=== PATIENT | female | born 1940 | race Caucasian/White ===

== ENCOUNTER → 2017-12-10 12:59 | Outpatient (CLI) | payer MEDICARE, OTHER, SELFPAY ==
[2017-12-10 14:00] LABS: Add Manual Diff / Slide Review NO; Basophils Percent Auto 0.9 % (0-2); Eosinophils Percent Auto 7.3 % (2-4); Hematocrit 41.1 % (36-46); Hemoglobin 13.8 g/dL (12.0-16.0); Lymphocytes Percent Auto 18.8 % (25-40); Mean Corpuscular HGB Conc 33.6 % (30-36); Mean Corpuscular Hemoglobin 29.9 PG (26-34); Monocytes Percent Auto 9.7 % (3-14); Neutrophils Absolute Auto 4200 /uL (3000-5900); Neutrophils Percent Auto 63.3 % (50-75); Platelet Count 195 X10^3/uL (150-400); Red Blood Cell Count 4.61 X10^6/uL (4.0-5.2); Red Cell Distribution Width 12.8 % (11.6-14.8); White Blood Cell Count 6.7 X10^3/uL (4.5-11.0)
[2017-12-10 14:11] LABS: Alanine Aminotransferase 35 IU/L (9-52); Albumin 4.6 g/dL (3.5-5.0); Albumin Globulin Ratio 1.5 (1.0-2.8); Alkaline Phosphatase 72 U/L (38-126); Aspartate Aminotransferase 35 IU/L (14-36); Bilirubin Total 0.6 mg/dL (0.2-1.3); Estimated Glomerular Filt Rate 43.3 mL/min (>60); Globulin 3.1 g/dL (1.7-4.1); Glucose 95 mg/dL (80-110); HEMOLYSIS 17 (0-50); Sodium 136 mmol/L (137-145); Total Protein 7.7 g/dL (6.3-8.2)
== END ==
PROVIDERS: Family Provider Internal Medicine; PCP Internal Medicine; Visit Provider Nurse Practitioner Gerontology
DX: C50.911 Malignant neoplasm of unspecified site of right female breast (principal)
CPT/HCPCS: 36415; 80053; 85025

== ENCOUNTER → 2018-06-11 09:41 | Outpatient (CLI) | payer MEDICARE, OTHER, SELFPAY ==
[2017-12-15 11:56] VITALS: TEMP 36.6
[2018-06-11 10:03] LABS: Add Manual Diff / Slide Review NO; Basophils Percent Auto 0.8 % (0-2); Eosinophils Percent Auto 6.6 % (2-4); Hematocrit 40.3 % (36-46); Hemoglobin 13.7 g/dL (12.0-16.0); Lymphocytes Percent Auto 20.8 % (25-40); Mean Corpuscular Hemoglobin 30.1 PG (26-34); Mean Corpuscular Volume 88.6 fL (80-100); Neutrophils Absolute Auto 3500 /uL (3000-5900); Neutrophils Percent Auto 61.8 % (50-75); Platelet Count 190 X10^3/uL (150-400); Red Blood Cell Count 4.55 X10^6/uL (4.0-5.2); Red Cell Distribution Width 12.6 % (11.6-14.8); White Blood Cell Count 5.7 X10^3/uL (4.5-11.0)
[2018-06-11 10:21] LABS: Alanine Aminotransferase 35 IU/L (9-52); Albumin 4.6 g/dL (3.5-5.0); Albumin Globulin Ratio 1.6 (1.0-2.8); Alkaline Phosphatase 69 U/L (38-126); Aspartate Aminotransferase 36 IU/L (14-36); Bilirubin Total 0.5 mg/dL (0.2-1.3); Blood Urea Nitrogen 18 mg/dL (7-17); Calcium 10.1 mg/dL (8.4-10.2); Carbon Dioxide 29 mmol/L (22-32); Chloride 100 mmol/L (98-107); Estimated Glomerular Filt Rate > 60.0 mL/min (>60); Globulin 2.9 g/dL (1.7-4.1); Glucose 100 mg/dL (80-110); HEMOLYSIS < 15 (0-50); Potassium 4.1 mmol/L (3.4-5.1); Sodium 141 mmol/L (137-145); Total Protein 7.5 g/dL (6.3-8.2)
== END ==
PROVIDERS: Family Provider Internal Medicine; PCP Internal Medicine; Visit Provider Nurse Practitioner Gerontology
DX: C50.911 Malignant neoplasm of unspecified site of right female breast (principal)
CPT/HCPCS: 36415; 80053; 85025

== ENCOUNTER → 2018-07-26 12:36 | Outpatient (CLI) | payer MEDICARE, OTHER, SELFPAY | PROVIDERS: Family Provider Internal Medicine; PCP Internal Medicine; Visit Provider Internal Medicine | DX: Z78.0 Asymptomatic menopausal state (principal); Z90.722 Acquired absence of ovaries, bilateral; Z82.62 Family history of osteoporosis; Z85.3 Personal history of malignant neoplasm of breast; Z87.891 Personal history of nicotine dependence | CPT/HCPCS: 77080 ==

== ENCOUNTER → 2018-12-09 13:45 | Outpatient (CLI) | payer MEDICARE, OTHER, SELFPAY ==
--- NOTE | 2018-12-09 13:46 | DI.US.S_ITS ---
LIMITED ULTRASOUND OF RIGHT BREAST: 12/09/2018 CLINICAL: Palp lump at area of lumpectomy scar. Comparison is made to exams dated: 12/09/2018 mammogram and 10/15/2017 mammogram - [facility]. Color flow and real-time ultrasound of the right breast lower outer quadrant were performed. Watkins scale images of the real-time examination were reviewed. There is 2.3 cm x 0.7 cm x 1.6 cm oval fluid collection in the right breast at 8 o'clock posterior depth. Internally, this oval fluid collection is anechoic. Surrounding tissue demonstrates mild edema. This correlates as palpated. Color flow imaging demonstrates that there is no vascularity present. No suspicious shadowing or vascularity. IMPRESSION: PROBABLY BENIGN The 2.3 cm x 0.7 cm x 1.6 cm oval fluid collection in the right breast is consistent with the lumpectomy cavity or a seroma and is probably benign. A follow-up right ultrasound in 6 months is recommended to demonstrate stability. Findings and recommendations were conveyed to the patient. This exam was interpreted at Station ID: [id number]. Electronically Signed By: Aminta varela/:12/09/2018 17:04:51 copy to: Alex Perera letter sent: Followup Recommended Ultrasound BI-RADS: 3 Probably benign
--- NOTE | 2018-12-09 13:46 | DI.MG.S_ITS ---
BILATERAL DIGITAL DIAGNOSTIC MAMMOGRAM 3D/2D POST LUMPECTOMY: 12/09/2018 CLINICAL: Personal history of right breast cancer. New Right Breast Mass. Comparison is made to exam dated: 10/15/2017 [facility]. The tissue of both breasts is extremely dense, which lowers the sensitivity of mammography. There is an irregular asymmetry within the skin of the right breast at 7 o'clock. This is at the lateral aspect of the lumpectomy scar. No other significant masses, calcifications, or other findings are seen in either breast. IMPRESSION: INCOMPLETE: NEEDS ADDITIONAL IMAGING EVALUATION The irregular asymmetry within the skin associated with the lumpectomy scar in the right breast is indeterminate. An ultrasound is recommended and was subsequently performed. This exam was interpreted at Station ID: [id number]. NOTE: For mammograms, a report in lay terms will be sent to the patient. Approximately 15% of breast malignancies will not be visualized mammographically. In the management of a palpable breast mass, a negative mammogram must not discourage biopsy of a clinically suspicious lesion. Electronically Signed By: Aminta varela/:12/09/2018 16:58:46 copy to: Alex Perera ACR BI-RADS Category 0: Incomplete 3340F
== END ==
PROVIDERS: Family Provider Internal Medicine; PCP Internal Medicine; Visit Provider Internal Medicine Hematology & Oncology
DX: R92.8 Other abnormal and inconclusive findings on diagnostic imaging of breast (principal); N64.89 Other specified disorders of breast; Z85.3 Personal history of malignant neoplasm of breast
CPT/HCPCS: 76642; 77066; G0279

== ENCOUNTER → 2019-03-28 09:50 | Outpatient (CLI) | payer MEDICARE, OTHER, SELFPAY ==
--- NOTE | 2019-03-28 | DI.RAD.S_ITS ---
PROCEDURE: XR LUMBAR SPINE 2-3V INDICATIONS: BACK PAIN TECHNIQUE: 3 views of the lumbar spine were acquired. COMPARISON: [facility], , -SPINE 2-3 VIEWS, 05/08/2017, 11:24. FINDINGS: Bones: No fracture or focal osseous destruction. Multilevel degenerative endplate sclerosis and spurring. Diffuse facet arthropathy. Mild dextrocurvature centered at L3. Straightening of the normal lordotic curvature. Grade 1 retrolisthesis of L3 on L4 grade 1 anterolisthesis of L5 on S1. Diffuse moderate to severe disc height loss throughout the lumbar spine, and the visualized lower thoracic spine. Soft tissues: Overlying bowel gas pattern is normal. No suspicious soft tissue calcifications. IMPRESSION: Multilevel lumbar spondylosis and facet arthropathy, grossly unchanged since 05/08/17 Mild dextrocurvature as before. Dictated by: Dev Hernandez M.D. on 03/28/2019 at 11:35 Approved by: Dev Hernandez M.D. on 03/28/2019 at 11:37
--- NOTE | 2019-03-28 | DI.RAD.S_ITS ---
PROCEDURE: XR HIP W PEL IF DONE LT MIN 4V INDICATIONS: HIP PAIN TECHNIQUE: AP pelvis with lateral view(s) of the right and left hip(s). COMPARISON: None. FINDINGS: Bones: No fractures or dislocations. Pelvic ring appears intact. No suspicious bony lesions. Suspect bilateral hip chondrocalcinosis. Lower lumbar spondylosis. Pubic symphysis degenerative changes, and chondrocalcinosis noted. Soft tissues: The visualized bowel gas pattern is normal. No suspicious soft tissue calcifications. IMPRESSION: Bilateral hip chondrocalcinosis and mild bilateral hip joint degeneration. Severe lower lumbar spondylosis. Dictated by: Dev Hernandez M.D. on 03/28/2019 at 11:41 Approved by: Dev Hernandez M.D. on 03/28/2019 at 11:42
== END ==
PROVIDERS: Family Provider Internal Medicine; PCP Internal Medicine; Visit Provider Internal Medicine
DX: M54.9 Dorsalgia, unspecified (principal); M47.816 Spondylosis without myelopathy or radiculopathy, lumbar region; M43.16 Spondylolisthesis, lumbar region; M43.17 Spondylolisthesis, lumbosacral region; M16.0 Bilateral primary osteoarthritis of hip; M11.252 Other chondrocalcinosis, left hip; M11.251 Other chondrocalcinosis, right hip
CPT/HCPCS: 72100; 73522

== ENCOUNTER → 2019-05-31 10:38 | Outpatient (CLI) | payer MEDICARE, OTHER, SELFPAY ==
--- NOTE | 2019-05-31 10:39 | DI.US.S_ITS ---
ULTRASOUND OF RIGHT BREAST: 05/31/2019 CLINICAL: 6 month follow-up lumpectomy site. Comparison is made to exams dated: 12/09/2018 ultrasound, 12/09/2018 mammogram, 10/15/2017 mammogram, 07/09/2016 specimen, 06/04/2016 mammogram, and 06/04/2016 ultrasound [facility]. Color flow ultrasound of the right breast was performed on the areas of interest. Watkins scale images of the real-time examination were reviewed. The anechoic, avascular 2.1 cm x 0.5 cm x 1.3 cm oval fluid collection in the right breast at 8 o'clock posterior depth is decreased in size when compared to the ultrasound dated 12/09/18. IMPRESSION: BENIGN There is no sonographic evidence of malignancy. The 2.1 cm x 0.5 cm x 1.3 cm oval fluid collection in the right breast is consistent with the lumpectomy cavity or a seroma and is benign. A 1 year screening mammogram is recommended. This exam was interpreted at Station ID: [id number]. Electronically Signed By: Edel gray/:05/31/2019 14:30:38 copy to: Alex Perera letter sent: Normal Exam Ultrasound BI-RADS: 2 Benign
== END ==
PROVIDERS: Family Provider Internal Medicine; PCP Internal Medicine; Visit Provider Internal Medicine Hematology & Oncology
DX: C50.911 Malignant neoplasm of unspecified site of right female breast (principal); Z98.890 Other specified postprocedural states
CPT/HCPCS: 76642

== ENCOUNTER → 2020-01-04 09:06 | Outpatient (CLI) | payer MEDICARE, OTHER, SELFPAY ==
[2020-01-04 09:22] LABS: Add Manual Diff / Slide Review NO; Basophils Absolute Auto 100 /uL (0-100); Eosinophils Absolute Auto 400 /uL (0-450); Eosinophils Percent Auto 5.5 % (2-4); Hematocrit 40.8 % (36-46); Hemoglobin 14.3 g/dL (12.0-16.0); Lymphocytes Absolute Auto 1800 /uL (1100-4500); Lymphocytes Percent Auto 24.6 % (25-40); Mean Corpuscular Hemoglobin 30.9 PG (26-34); Mean Corpuscular Volume 88.3 fL (80-100); Monocytes Absolute Auto 800 /uL (0-900); Neutrophils Absolute Auto 4200 /uL (1500-7000); Neutrophils Percent Auto 57.9 % (50-75); Platelet Count 218 X10^3/uL (150-400); Red Blood Cell Count 4.63 X10^6/uL (4.0-5.2); Red Cell Distribution Width 12.8 % (11.6-14.8); White Blood Cell Count 7.3 X10^3/uL (4.5-11.0)
[2020-01-04 09:31] LABS: Alanine Aminotransferase 25 IU/L (<35); Albumin Globulin Ratio 1.4 (1.0-2.8); Alkaline Phosphatase 82 U/L (38-126); Aspartate Aminotransferase 36 IU/L (14-36); Bilirubin Total 0.6 mg/dL (0.2-1.3); Blood Urea Nitrogen 19 mg/dL (7-17); Carbon Dioxide 31 mmol/L (22-32); Chloride 96 mmol/L (98-107); Estimated Glomerular Filt Rate 56.5 mL/min (>60); Globulin 3.5 g/dL (1.7-4.1); Glucose 100 mg/dL (80-110); HEMOLYSIS < 15 (0-50); Potassium 4.2 mmol/L (3.4-5.1); Sodium 136 mmol/L (137-145); Total Protein 8.5 g/dL (6.3-8.2)
== END ==
PROVIDERS: Family Provider Internal Medicine; PCP Internal Medicine; Referring Provider Internal Medicine Hematology & Oncology; Visit Provider Internal Medicine Hematology & Oncology
DX: C50.911 Malignant neoplasm of unspecified site of right female breast (principal)
CPT/HCPCS: 36415; 80053; 85025

== ENCOUNTER → 2020-01-13 13:10 | Outpatient (CLI) | payer MEDICARE, OTHER, SELFPAY ==
--- NOTE | 2020-01-13 | DI.MG.S_ITS ---
BILATERAL DIGITAL SCREENING MAMMOGRAM 3D/2D WITH CAD POST LUMPECTOMY: 01/13/2020 CLINICAL: Routine screening. Breast cancer. Comparison is made to exams dated: 12/09/2018 mammogram, 10/15/2017 mammogram, 07/18/2016 mammogram, and 06/04/2016 mammogram - [facility]. The tissue of both breasts is extremely dense, which lowers the sensitivity of mammography. Current study was also evaluated with a Computer Aided Detection (CAD) system. There is a benign area of fat necrosis in the right breast. There also are benign calcifications in the right breast. Additionally, there are benign post operative findings in the right breast. No significant masses, calcifications, or other findings are seen in either breast. There has been no significant interval change. IMPRESSION: There is no mammographic evidence of malignancy. A 1 year screening mammogram is recommended. This exam was interpreted at Station ID: [id number]. NOTE: For mammograms, a report in lay terms will be sent to the patient. Approximately 15% of breast malignancies will not be visualized mammographically. In the management of a palpable breast mass, a negative mammogram must not discourage biopsy of a clinically suspicious lesion. Electronically Signed By: Albert mckeon/tenzin:01/13/2020 15:32:29 copy to: Alessandro Hernandez letter sent: Normal Exam ACR BI-RADS Category 2: Benign Finding(s) 3342F
== END ==
PROVIDERS: Family Provider Internal Medicine; PCP Internal Medicine; Referring Provider Internal Medicine; Visit Provider Internal Medicine
DX: Z12.31 Encounter for screening mammogram for malignant neoplasm of breast (principal); Z85.3 Personal history of malignant neoplasm of breast
CPT/HCPCS: 77063; 77067

== ENCOUNTER → 2020-04-17 09:13 | Outpatient (CLI) | payer MEDICARE, OTHER, SELFPAY ==
[2020-04-17 09:41] LABS: Add Manual Diff / Slide Review NO; Basophils Absolute Auto 100 /uL (0-100); Basophils Percent Auto 1.1 % (0-2); Eosinophils Absolute Auto 400 /uL (0-450); Eosinophils Percent Auto 4.9 % (2-4); Hematocrit 42.2 % (36-46); Hemoglobin 14.9 g/dL (12.0-16.0); Lymphocytes Absolute Auto 1600 /uL (1100-4500); Lymphocytes Percent Auto 21.6 % (25-40); Mean Corpuscular HGB Conc 35.2 % (30-36); Mean Corpuscular Hemoglobin 30.8 PG (26-34); Mean Corpuscular Volume 87.4 fL (80-100); Monocytes Absolute Auto 700 /uL (0-900); Monocytes Percent Auto 9.2 % (3-14); Neutrophils Absolute Auto 4700 /uL (1500-7000); Neutrophils Percent Auto 63.2 % (50-75); Platelet Count 210 X10^3/uL (150-400); Red Blood Cell Count 4.83 X10^6/uL (4.0-5.2); Red Cell Distribution Width 12.7 % (11.6-14.8); White Blood Cell Count 7.5 X10^3/uL (4.5-11.0)
[2020-04-17 09:45] LABS: Lactate Dehydrogenase 597 U/L (313-618)
[2020-04-17 10:23] LABS: Alanine Aminotransferase 24 IU/L (<35); Albumin Globulin Ratio 1.5 (1.0-2.8); Alkaline Phosphatase 85 U/L (38-126); Aspartate Aminotransferase 33 IU/L (14-36); BUN Creatinine Ratio 22.4 (6-22); Bilirubin Total 0.8 mg/dL (0.2-1.3); Blood Urea Nitrogen 19 mg/dL (7-17); Carbon Dioxide 31 mmol/L (22-32); Chloride 98 mmol/L (98-107); Cholesterol 225 mg/dL (140-199); Estimated Glomerular Filt Rate > 60.0 mL/min (>60); Globulin 3.3 g/dL (1.7-4.1); Glucose 116 mg/dL (80-110); HDL Cholesterol 93 mg/dL (40-60); HEMOLYSIS < 15 (0-50); LDL Cholesterol Calculated 108 mg/dL (<100); Potassium 4.1 mmol/L (3.4-5.1); Sodium 135 mmol/L (137-145); Total Protein 8.3 g/dL (6.3-8.2); Triglycerides 121 mg/dL (35-150)
[2020-04-19 15:35] LABS: Albumin 4.5 g/dL (2.9-4.4); Alpha-1-Globulin 0.2 g/dL (0.0-0.4); Alpha-2-Globulin 0.8 g/dL (0.4-1.0); Gamma Globulin 1.1 g/dL (0.4-1.8); Globulin Total 3.1 g/dL (2.2-3.9); Protein, Total 7.6 g/dL (6.0-8.5)
== END ==
PROVIDERS: Internal Medicine Hematology & Oncology; Family Provider Internal Medicine; PCP Internal Medicine; Referring Provider Internal Medicine; Visit Provider Internal Medicine
DX: I10 Essential (primary) hypertension (principal); E78.00 Pure hypercholesterolemia, unspecified; N18.9 Chronic kidney disease, unspecified; C50.911 Malignant neoplasm of unspecified site of right female breast; E83.52 Hypercalcemia
CPT/HCPCS: 36415; 80053; 80061; 83615; 84155; 84165; 85025

== ENCOUNTER → 2020-05-31 12:44 | Outpatient (CLI) | payer MEDICARE, OTHER, SELFPAY ==
--- NOTE | 2020-05-31 12:45 | DI.US.S_ITS ---
LIMITED ULTRASOUND OF RIGHT BREAST AND AXILLA: 05/31/2020 CLINICAL: Focal right breast pain. Comparison is made to exams dated: 01/13/2020 mammogram, 05/31/2019 ultrasound, 12/09/2018 ultrasound, 12/09/2018 mammogram, and 10/15/2017 mammogram - [facility]. Color flow ultrasound of the right breast axilla was performed. Watkins scale images of the real-time examination were reviewed. There is a 2.1 cm x 2.2 cm x 1.1 cm oval mass in the right breast at 10 o'clock in the retroareolar region 1 cm from the nipple. This oval mass is of mixed echogenicity with posterior acoustic shadowing. This correlates to the reported pain and with mammography findings. No significant abnormalities were seen sonographically in the right axilla. IMPRESSION: PROBABLY BENIGN The 2.1 cm x 2.2 cm x 1.1 cm oval mass in the right breast most likely is fat necrosis and is probably benign. A follow-up right mammogram and an ultrasound in 6 months is recommended to demonstrate stability. Future imaging is recommended as follows: 01/13/2021 screening mammogram. This exam was interpreted at Station ID: [id number]. Electronically Signed By: Gabriel cruz/tenzin:05/31/2020 15:22:49 letter sent: Followup Recommended Ultrasound BI-RADS: 3 Probably benign
== END ==
PROVIDERS: Family Provider Internal Medicine; PCP Internal Medicine; Referring Provider Internal Medicine; Visit Provider Internal Medicine Hematology & Oncology
DX: C50.911 Malignant neoplasm of unspecified site of right female breast (principal); N64.4 Mastodynia; N63.11 Unspecified lump in the right breast, upper outer quadrant
CPT/HCPCS: 76642

== ENCOUNTER → 2020-11-29 09:32 | Outpatient (CLI) | payer MEDICARE, OTHER, SELFPAY ==
--- NOTE | 2020-11-29 09:34 | DI.MG.S_ITS ---
UNILATERAL RIGHT DIGITAL DIAGNOSTIC MAMMOGRAM 3D/2D SHORT-TERM FOLLOW-UP POST LUMPECTOMY: 11/29/2020 CLINICAL: Short term follow up of the right breast. Comparison is made to exams dated: 05/31/2020 ultrasound, 01/13/2020 mammogram, 12/09/2018 mammogram, 05/31/2019 ultrasound, and 10/15/2017 mammogram - [facility]. The tissue of right breast is extremely dense, which lowers the sensitivity of mammography. The oval focal asymmetry with dystrophic calcifications in the right breast at 10 o'clock in the retroareolar region is stable in size with increased dystrophic calcifications. This correlates with ultrasound findings. Additionally, there are benign post operative findings in the right breast. No other significant masses or calcifications are seen in the breast. IMPRESSION: INCOMPLETE: NEEDS ADDITIONAL IMAGING EVALUATION Area of fat necrosis in the right retroareolar breast at 10:00 demonstrates increased dystrophic calcifications. A targeted ultrasound is recommended and will immediately follow. This exam was interpreted at Station ID: [id number]. NOTE: For mammograms, a report in lay terms will be sent to the patient. Approximately 15% of breast malignancies will not be visualized mammographically. In the management of a palpable breast mass, a negative mammogram must not discourage biopsy of a clinically suspicious lesion. Electronically Signed By: Suraj Hall M.D. slc/:11/29/2020 13:27:45 ACR BI-RADS Category 0: Incomplete 3340F
--- NOTE | 2020-11-29 09:34 | DI.US.S_ITS ---
LIMITED ULTRASOUND OF RIGHT BREAST: 11/29/2020 CLINICAL: 6 month follow-up of fat necrosis. Comparison is made to exams dated: 11/29/2020 mammogram, 05/31/2020 ultrasound, 01/13/2020 mammogram, 05/31/2019 ultrasound, 12/09/2018 mammogram, and 10/15/2017 mammogram - [facility]. Color flow and real-time ultrasound of the right breast 9-10 o'clock region were performed. Watkins scale images of the real-time examination were reviewed. There is a 2 cm x 1.9 cm x 1.2 cm oval mass in the right breast at 10 o'clock in the retroareolar region 1 cm from the nipple. This oval mass is of mixed echogenicity with posterior acoustic shadowing. This abnormality is not significantly changed in size and correlates to the reported pain and with mammography findings. Color flow imaging demonstrates that there is no vascularity present. IMPRESSION: BENIGN There is no sonographic evidence of malignancy. The 2 cm calcified mass in the right breast is consistent with fat necrosis and is benign. A 1 year screening mammogram is recommended. Exam findings were conveyed to the patient. Patient is advised to monitor for significant change. Clinical follow-up as needed. This exam was interpreted at Station ID: [id number]. Electronically Signed By: Suraj Hall M.D. slc/:11/29/2020 13:24:20 letter sent: Normal Exam Ultrasound BI-RADS: 2 Benign
== END ==
PROVIDERS: Family Provider Internal Medicine; PCP Internal Medicine; Referring Provider Internal Medicine Hematology & Oncology; Visit Provider Internal Medicine Hematology & Oncology
DX: C50.911 Malignant neoplasm of unspecified site of right female breast (principal); R92.8 Other abnormal and inconclusive findings on diagnostic imaging of breast; N63.11 Unspecified lump in the right breast, upper outer quadrant
CPT/HCPCS: 76642; 77065; G0279

== ENCOUNTER → 2021-01-14 15:43 | Outpatient (CLI) | payer MEDICARE, OTHER, SELFPAY ==
--- NOTE | 2021-01-14 15:45 | DI.MG.S_ITS ---
UNILATERAL LEFT DIGITAL SCREENING MAMMOGRAM 3D/2D WITH CAD: 01/14/2021 CLINICAL: Routine screening. Comparison is made to exams dated: 01/13/2020 mammogram, 12/09/2018 mammogram, 10/15/2017 mammogram, and 11/29/2020 mammogram - [facility]. The tissue of left breast is extremely dense, which lowers the sensitivity of mammography. Current study was also evaluated with a Computer Aided Detection (CAD) system. No significant masses, calcifications, or other findings are seen in the breast. There has been no significant interval change. IMPRESSION: NEGATIVE There is no mammographic evidence of malignancy. A 1 year screening mammogram is recommended. This exam was interpreted at Station ID: [id number]. NOTE: For mammograms, a report in lay terms will be sent to the patient. Approximately 15% of breast malignancies will not be visualized mammographically. In the management of a palpable breast mass, a negative mammogram must not discourage biopsy of a clinically suspicious lesion. Electronically Signed By: Aminta varela/tenzin:01/14/2021 16:28:39 letter sent: Normal Exam ACR BI-RADS Category 1: Negative [id number]
== END ==
PROVIDERS: Family Provider Internal Medicine; PCP Internal Medicine; Referring Provider Internal Medicine Hematology & Oncology; Visit Provider Internal Medicine Hematology & Oncology
DX: Z12.31 Encounter for screening mammogram for malignant neoplasm of breast (principal); C50.911 Malignant neoplasm of unspecified site of right female breast
CPT/HCPCS: 77063; 77067

== ENCOUNTER 2021-04-05 12:45 | Emergency (ER) | payer MEDICARE, OTHER, SELFPAY ==
[2021-04-05] VITALS (18 sets, daily range): BP systolic 136–183; BP diastolic 63–90; PULSE 95–120; RESP 13–28; TEMP 36.6; O2SAT 95–99; BMI 26.5
--- NOTE | 2021-04-05 12:53 | DI.CT.S_ITS ---
PROCEDURE: CT STROKE INDICATIONS: sudden memory loss improved. TECHNIQUE: Noncontrast 4.5 mm thick angled axial sections acquired from the foramen magnum to the vertex, with coronal reformats. For radiation dose reduction, the following was used: automated exposure control, adjustment of mA and/or kV according to patient size. COMPARISON: None. FINDINGS: Image quality: Excellent. CSF spaces: Basal cisterns are patent. No extra-axial fluid collections. The ventricles are symmetric in size and shape. Brain: No intracranial bleeds or masses. There is moderate cerebral volume loss for age, with resultant ventricular and sulcal prominence. There are moderate periventricular and deep white matter chronic small vessel ischemic changes. There is intracranial internal carotid artery atherosclerosis. Skull and face: Calvarium and visualized facial bones appear intact, without suspicious lesions. Sinuses: Visualized sinuses and mastoids are clear. IMPRESSION: 1. No acute intracranial abnormalities. 2. Cerebral volume loss and chronic microvascular ischemic changes. The result was discussed with Dr. Lopez. This study fulfills neurological imaging criteria for inclusion or exclusion of acute stroke therapies based on available published neurological guidelines. Dictated by: Germán Eid M.D. on 04/05/2021 at 13:12 Approved by: Germán Eid M.D. on 04/05/2021 at 13:15
[2021-04-05 13:10] LABS: Add Manual Diff / Slide Review NO; Basophils Absolute Auto 100 /uL (0-100); Basophils Percent Auto 1.1 % (0-2); Eosinophils Absolute Auto 300 /uL (0-450); Eosinophils Percent Auto 3.5 % (2-4); Hematocrit 43.8 % (36-46); Hemoglobin 14.7 g/dL (12.0-16.0); Lymphocytes Absolute Auto 2400 /uL (1100-4500); Lymphocytes Percent Auto 24.6 % (25-40); Mean Corpuscular HGB Conc 33.6 % (30-36); Mean Corpuscular Volume 89.3 fL (80-100); Monocytes Absolute Auto 800 /uL (0-900); Monocytes Percent Auto 8.6 % (3-14); Neutrophils Absolute Auto 6100 /uL (1500-7000); Neutrophils Percent Auto 62.2 % (50-75); Platelet Count 246 X10^3/uL (150-400); Red Cell Distribution Width 12.9 % (11.6-14.8); White Blood Cell Count 9.8 X10^3/uL (4.5-11.0)
[2021-04-05 13:26] LABS: Prothrombin Time 10.5 SECONDS (10.1-12.7)
[2021-04-05] MEDS: SODIUM CHLORIDE 0.9% 1,000 ML 150 ML IV (13:27)
[2021-04-05 13:29] LABS: PTT Partial Thromboplastin Tim 31 SECONDS (26.4-36.2)
[2021-04-05 13:31] LABS: BUN Creatinine Ratio 20.2 (6-22); Blood Urea Nitrogen 20 mg/dL (7-17); Calcium 11.3 mg/dL (8.4-10.2); Carbon Dioxide 27 mmol/L (22-32); Chloride 98 mmol/L (98-107); Creatine Kinase 63 U/L (30-135); Estimated Glomerular Filt Rate 53.7 mL/min (>60); Glucose 129 mg/dL (80-110); HEMOLYSIS < 15 (0-50); Potassium 3.8 mmol/L (3.4-5.1); Sodium 137 mmol/L (137-145)
--- NOTE | 2021-04-05 13:35 | DI.CT.S_ITS ---
PROCEDURE: CT ANGIO HEAD AND NECK INDICATIONS: expressive aphasia, resolved. TECHNIQUE: After the administration of intravenous contrast, 1 mm thick sections acquired from the aortic arch through the [place] of [place]. Post-contrast 4.5 mm thick sections then re-acquired from the foramen magnum to the vertex. 3-dimensional [id number]-uyfnqyxfqj (MIP) and/or volume rendering reformats were acquired of the central intracranial vasculature and neck separately. COMPARISON: [facility], CT, CT STROKE, 04/05/2021, 12:58. FINDINGS: Image quality: Excellent. BRAIN: The ventricular system and cortical sulci demonstrate atrophy, consistent for the patient's stated age. There are areas of hypodensity within the periventricular and subcortical white matter. There is no acute intra-or extra axial fluid collection. No acute hemorrhage, mass lesion or midline shift. Brainstem is unremarkable. Globes are symmetrical. Sinuses are aerated. Osseous structures are intact. . HEAD CT ANGIOGRAPHY: Anterior circulation: Intracranial internal carotid arteries are normal in size and flow. The flow within the paired anterior cerebral arteries is normal and symmetric. The flow within the middle cerebral arteries is normal and symmetric. The anterior communicating artery is seen. No aneurysms are seen. Posterior circulation: Visualized portions of the vertebral arteries demonstrate normal caliber, and join to form a normal appearing basilar artery. Flow within the posterior cerebral arteries is normal and symmetric. No aneurysms are seen. There is a right vertebral artery dominance. NECK CT ANGIOGRAPHY: The origins of the left and right common, internal and external carotid arteries demonstrate no areas of hemodynamically significant stenosis, vascular occlusion or aneurysmal dilation. Origins of the left and right vertebral arteries demonstrate no areas of hemodynamically significant stenosis, vascular occlusion or aneurysmal dilation. 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 Limited, visualized portions of the subclavian vasculature are unremarkable. Miscellaneous: Heart is enlarged. Lungs are clear. Visualized portions of the upper abdomen are grossly unremarkable. IMPRESSION: 1. No acute intracranial process. 2. Moderate atrophy and chronic microvascular ischemic changes. 3. No areas of hemodynamically significant stenosis, vascular occlusion or aneurysmal dilation within the anterior or posterior circulation. 4. No areas of hemodynamically significant stenosis, vascular occlusion or aneurysmal dilation within the neck vasculature. Any quantitative measurements of stenosis were performed using NASCET criteria. Dictated by: Trina Patel M.D. on 04/05/2021 at 15:03 Approved by: Trina Patel M.D. on 04/05/2021 at 15:14
[2021-04-05 13:42] LABS: Troponin I < 0.012 ng/mL (0.01-0.034)
[2021-04-05] MEDS: ASPIRIN 81 MG CHEW TAB 243 MG PO (13:55)
--- NOTE | 2021-04-05 14:04 | PC.NURSE ---
Pt earlier today was able to think of names of familiar people but unable to say their names along with some other objects. Symptoms have since resolved.
--- NOTE | 2021-04-05 14:05 | ED.NEUROSD ---
HPI - Neuro Symptoms/Deficit General Chief Complaint: Altered Mental Status Stated Complaint: trouble recalling things Time Seen by Provider: 04/05/21 12:53 Source: patient and family Mode of arrival: Ambulatory Limitations: no limitations History of Present Illness HPI Narrative: This is an 80-year-old female comes in with complaint of difficulty expressing herself. Patient could not remember her 's name, her neighbor's name or how to say words for [place] and lows which she was going to today. She states she knew what she wanted to say but could express the words this lasted for about an hour. And then resolved. She had no additional symptoms. No headache, no chest pain or shortness of breath. No nausea or vomiting. No numbness, tingling or weakness, no other symptoms. She feels she can not express herself fully at this time. Her son who is at bedside states her symptoms also seemed to have resolved. She has an aspirin 81 mg daily, amlodipine, atorvastatin and losartan/hydrochlorothiazide. She does have a pacemaker. On Anticoagulants: No Related Data Home Medications Medication Instructions Recorded Confirmed aspirin 81 mg tablet,delayed 81 mg PO QDAY #30 tab 04/01/16 01/12/20 release tramadol 50 mg tablet 50 mg PO Q6H PRN 11/29/18 01/12/20 Previous Rx's Medication Instructions Recorded amlodipine 10 mg tablet 10 mg PO QDAY #30 tab 05/13/17 atorvastatin 40 mg tablet 40 mg PO QDAY #30 tab 05/13/17 losartan 100 1 tab PO QDAY #30 tab 05/13/17 mg-hydrochlorothiazide 25 mg tablet clopidogrel 75 mg tablet (Plavix) 75 mg PO DAILY #21 tab 04/05/21 Allergies Allergy/AdvReac Type Severity Reaction Status Date / Time letrozole [LETROZOLE] Allergy Unknown FULL BODY Verified 04/05/21 13:16 ACHES Review of Systems Review of Systems ROS Unobtainable: All systems reviewed & are unremarkable except as noted in HPI and below Hematologic/Lymphatic On Anticoagulants: No Patient History Medical History (Updated 04/05/21 @ 15:47 by Sherlyn Lopez DO) Anxiety (Unknown) Arthritis Breast cancer (05/2016) Cardiac arrhythmia (2010) Cataracts, bilateral (2009) Chickenpox (~1942) Chronic back pain (1989) Foot pain (2001) Hemorrhoids (1979) Hyperlipemia Hypertension (1985) Measles (~1944) Palpitations Restless leg syndrome (Unknown) Shoulder pain (2001) Surgical History History of cataract removal with insertion of prosthetic lens (2009) History of partial mastectomy of right breast (06/2016) Hx of foot surgery (2003) Hx of tonsillectomy Presence of cardiac pacemaker (~2010) S/P trigger finger release (2008) Status post hysterectomy (2007) Family History Father Heart disease Stroke Mother Hypertension Grandmother Stroke Social History Smoking Status: Never smoker Smoking Status: Never smoker alcohol intake frequency: 0-2 drinks per day Substance Use Type: does not use Exam Narrative Exam Narrative: GEN: well nourished, well appearing female, alert and oriented x 3, patient appears to be in mild distress. HEENT: Atraumatic, pupils are equal round reactive to light, extraocular movements are intact, nares are clear, no facial droop. Clear speech. HEART: Regular rate and rhythm without murmur, clicks, rubs. No carotid bruits, pulses are equal in upper and lower extremities LUNGS:Lungs clear to auscultation, no wheezes, rales, crackles, chest moves symmetrically ABD:bowel sounds normal, soft, non-tender, no guarding, rebound, rigidity, no masses noted, no hepatosplenomegaly MSCL: Non-tender, no muscle atrophy, muscles strength 5/5 upper and lower extremities, full range of motion, normal gait NEURO:CN 2-12 intact, sensation normal, reflexes 2/4 upper and lower extremities. finger nose finger test normal, heel ro test normal, romberg normal Initial Vital Signs Initial Vital Signs: Vital Signs Temperature 97.9 F 04/05/21 12:47 Pulse Rate 120 H 04/05/21 12:47 Respiratory Rate 20 04/05/21 12:47 Blood Pressure 183/90 H 04/05/21 12:47 Pulse Oximetry 99 04/05/21 12:47 Scores NIH Stroke Scale Level of Conciousness: Alert, keenly responsive Ask month/age: Answers both questions correctly. Open/close eyes, close hand: Performs both tasks correctly Best gaze horizontal: Normal Visual dodson: No visual loss Facial palsy: Normal symetrical movement Left arm drift: No drift for full 10 sec Right arm drift: No drift for full 10 sec Left leg drift: No drift for full 5 sec Right leg drift: No drift for full 5 sec Limb ataxia: Absent Sensory on face/arms/legs: Normal, no sensory loss Best language: No aphasia, normal Dysarthria: Normal Extinction or inattention: No abnormality Total NIH Stroke scale score: 0 Course Orders Ordered: ED Orders 04/05/21 12:53 CT Stroke Stat EKG-12 Lead Stat 04/05/21 13:00 Basic Metabolic Panel Stat Complete Blood Count AUTO DIFF Stat Partial Thromboplastin Time Stat Prothrombin Time INR Stat Troponin & CK Cardiac Panel Stat 04/05/21 13:35 CT angio head and neck Stat 04/05/21 14:39 Urine Drug Screen, Rapid Stat Discontinued Medications Aspirin (Aspirin 81 Mg Chew Tab) 243 mg PO NOW ONE Stop: 04/05/21 13:36 Last Admin: 04/05/21 13:55 Dose: 243 mg Documented by: NILA Clopidogrel Bisulfate (Clopidogrel 75 Mg Tablet) 300 mg PO NOW ONE Stop: 04/05/21 16:57 Last Admin: 04/05/21 17:11 Dose: 300 mg Documented by: NILA Sodium Chloride (Normal Saline 0.9%) 1,000 mls @ 150 mls/hr IV CONT TINA Last Infusion: 04/05/21 17:12 Dose: 0 mls/hr Documented by: Admin: 04/05/21 13:27 Dose: 150 mls/hr Documented by: NILA Consultations Consultation #1: Luis Eduardo hospitalist. Will see patient. Observation to be offered but if patient prefers will d/c home. Patient was seen in the department. Patient elects to return home plan for aspirin 81 mg daily with Plavix 300 mg loading dose here in the department and Plavix 75 mg once daily times 21 days. Vital Signs Vital signs: Vital Signs - 8 hr 04/05/21 12:47 04/05/21 13:32 04/05/21 13:33 Temperature 97.9 F Pulse Rate 120 H 100 H 101 H Respiratory Rate 20 18 25 H Blood Pressure 183/90 H 169/72 H Pulse Oximetry 99 97 99 04/05/21 14:00 04/05/21 14:27 04/05/21 14:30 Temperature Pulse Rate 99 H 101 H 97 H Respiratory Rate 24 18 15 Blood Pressure 165/75 H 158/74 H 145/66 H Pulse Oximetry 97 96 97 04/05/21 14:49 04/05/21 15:00 04/05/21 15:30 Temperature Pulse Rate 105 H 95 H 101 H Respiratory Rate 24 28 H 24 Blood Pressure 167/72 H 136/63 149/70 H Pulse Oximetry 96 96 96 04/05/21 16:00 04/05/21 16:10 04/05/21 16:11 Temperature Pulse Rate 105 H 111 H 109 H Respiratory Rate 25 H 13 13 Blood Pressure 161/74 H 161/77 H 154/70 H Pulse Oximetry 97 95 97 04/05/21 16:12 04/05/21 16:13 04/05/21 16:14 Temperature Pulse Rate 110 H 108 H 105 H Respiratory Rate 16 21 21 Blood Pressure 151/65 H 148/66 H 140/63 Pulse Oximetry 97 96 97 04/05/21 16:26 04/05/21 16:30 04/05/21 17:00 Temperature Pulse Rate 100 H 111 H 105 H Respiratory Rate 18 20 Blood Pressure 164/85 H 155/70 H Pulse Oximetry 96 95 MDM - Neuro Symptoms/Deficit Lab Data Result diagrams: 04/05/21 13:00 04/05/21 13:00 Labs: Lab Results 04/05/21 04/05/21 04/05/21 Range/Units 13:00 13:00 13:00 WBC 9.8 (4.5-11.0) X10^3/uL RBC 4.90 (4.0-5.2) X10^6/uL Hgb 14.7 (12.0-16.0) g/dL Hct 43.8 (36-46) % MCV 89.3 (80-100) fL MCH 30.0 (26-34) PG MCHC 33.6 (30-36) % RDW 12.9 (11.6-14.8) % Plt Count 246 (150-400) X10^3/uL Neut % (Auto) 62.2 (50-75) % Lymph % (Auto) 24.6 L (25-40) % Foard % (Auto) 8.6 (3-14) % Eos % (Auto) 3.5 (2-4) % Baso % (Auto) 1.1 (0-2) % Neut # (Auto) 6100 (1457-7406) /uL Lymph # (Auto) 2400 (9567-9416) /uL Foard # (Auto) 800 (0-900) /uL Eos # (Auto) 300 (0-450) /uL Baso # (Auto) 100 (0-100) /uL PT 10.5 (10.1-12.7) SECONDS INR 1.0 (0.9-1.3) APTT 31 (26.4-36.2) SECONDS Sodium 137 (137-145) mmol/L Potassium 3.8 (3.4-5.1) mmol/L Chloride 98 (98-107) mmol/L Carbon Dioxide 27 (22-32) mmol/L BUN 20 H (7-17) mg/dL Creatinine 0.99 (0.52-1.04) mg/dL Estimated GFR 53.7 L (>60) mL/min BUN/Creatinine Ratio 20.2 (6-22) Glucose 129 H (80-110) mg/dL Calcium 11.3 H (8.4-10.2) mg/dL Total Creatine Kinase 63 (30-135) U/L CK-MB (CK-2) TNP CK-MB (CK-2) Rel Index TNP Troponin I < 0.012 (0.01-0.034) ng/mL U Opiates 300ng/mL cut (Negative) Ur Oxycodone Screen (Negative) Urine Methadone Screen (Negative) Ur Barbiturates Screen (Negative) U Tricyclic Antidepress (Negative) Ur Phencyclidine Scrn (Negative) Ur Amphetamines Screen (Negative) U Methamphetamines Scrn (Negative) Ur MDMA Scrn (Ecstasy) (Negative) U Benzodiazepines Scrn (Negative) Urine Cocaine Screen (Negative) U Marijuana (THC) Screen (Negative) 04/05/21 Range/Units 14:39 WBC (4.5-11.0) X10^3/uL RBC (4.0-5.2) X10^6/uL Hgb (12.0-16.0) g/dL Hct (36-46) % MCV (80-100) fL MCH (26-34) PG MCHC (30-36) % RDW (11.6-14.8) % Plt Count (150-400) X10^3/uL Neut % (Auto) (50-75) % Lymph % (Auto) (25-40) % Foard % (Auto) (3-14) % Eos % (Auto) (2-4) % Baso % (Auto) (0-2) % Neut # (Auto) (6551-4738) /uL Lymph # (Auto) (2152-2691) /uL Foard # (Auto) (0-900) /uL Eos # (Auto) (0-450) /uL Baso # (Auto) (0-100) /uL PT (10.1-12.7) SECONDS INR (0.9-1.3) APTT (26.4-36.2) SECONDS Sodium (137-145) mmol/L Potassium (3.4-5.1) mmol/L Chloride (98-107) mmol/L Carbon Dioxide (22-32) mmol/L BUN (7-17) mg/dL Creatinine (0.52-1.04) mg/dL Estimated GFR (>60) mL/min BUN/Creatinine Ratio (6-22) Glucose (80-110) mg/dL Calcium (8.4-10.2) mg/dL Total Creatine Kinase (30-135) U/L CK-MB (CK-2) CK-MB (CK-2) Rel Index Troponin I (0.01-0.034) ng/mL U Opiates 300ng/mL cut Negative (Negative) Ur Oxycodone Screen Negative (Negative) Urine Methadone Screen Negative (Negative) Ur Barbiturates Screen Negative (Negative) U Tricyclic Antidepress Negative (Negative) Ur Phencyclidine Scrn Negative (Negative) Ur Amphetamines Screen Negative (Negative) U Methamphetamines Scrn Negative (Negative) Ur MDMA Scrn (Ecstasy) Negative (Negative) U Benzodiazepines Scrn Negative (Negative) Urine Cocaine Screen Negative (Negative) U Marijuana (THC) Screen Negative (Negative) Point of Care Testing Glucose POC 127 Urine Dip Bedside Urine Glucose Negative Bedside Urine Bilirubin - Negative Bedside Urine Ketone - Negative Urine Specific [place] 1.015 Bedside Urine Occult Blood - Negative Bedside Urine pH 6.5 Bedside Urine Protein - Negative Bedside Urine Urobilinogen - Negative Bedside Urine Nitrite - Negative Bedside Urine Leukocytes - Negative Esterase Imaging Data CTA - brain/neck: Radiologist's Impression: [address] [id number] Scan ReportSigned Patient: Chula Grajeda [facility]#: [id number]: [id number]:[id number]/Sex: 80 / FDate of Service: 04/05/21Loc: EDAccession Number: [id number] Procedure: CT angio head and neck Ordering Provider: Sherlyn Lopez D.O. PROCEDURE: CT ANGIO HEAD AND NECK INDICATIONS: expressive aphasia, resolved. TECHNIQUE: After the administration of intravenous contrast, 1 mm thick sections acquired from the aortic arch through the [place] of [place]. Post-contrast 4.5 mm thick sections then re-acquired from the foramen magnum to the vertex. 3-dimensional jocixbx-nrxkoeilq-yeozyjqvbk (MIP) and/or volume rendering reformats were acquired of the central intracranial vasculature and neck separately. COMPARISON: [facility], CT, CT STROKE, 04/05/2021, 12:58. FINDINGS: Image quality: Excellent. BRAIN: The ventricular system and cortical sulci demonstrate atrophy, consistent for the patient's stated age. There are areas of hypodensity within the periventricular and subcortical white matter. There is no acute intra-or extra axial fluid collection. No acute hemorrhage, mass lesion or midline shift. Brainstem is unremarkable. Globes are symmetrical. Sinuses are aerated. Osseous structures are intact. . HEAD CT ANGIOGRAPHY: Anterior circulation: Intracranial internal carotid arteries are normal in size and flow. The flow within the paired anterior cerebral arteries is normal and symmetric. The flow within the middle cerebral arteries is normal and symmetric. The anterior communicating artery is seen. No aneurysms are seen. Posterior circulation: Visualized portions of the vertebral arteries demonstrate normal caliber, and join to form a normal appearing basilar artery. Flow within the posterior cerebral arteries is normal and symmetric. No aneurysms are seen. There is a right vertebral artery dominance. NECK CT ANGIOGRAPHY: The origins of the left and right common, internal and external carotid arteries demonstrate no areas of hemodynamically significant stenosis, vascular occlusion or aneurysmal dilation. Origins of the left and right vertebral arteries demonstrate no areas of hemodynamically significant stenosis, vascular occlusion or aneurysmal dilation. 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 Limited, visualized portions of the subclavian vasculature are unremarkable. Miscellaneous: Heart is enlarged. Lungs are clear. Visualized portions of the upper abdomen are grossly unremarkable. IMPRESSION: 1. No acute intracranial process. 2. Moderate atrophy and chronic microvascular ischemic changes. 3. No areas of hemodynamically significant stenosis, vascular occlusion or aneurysmal dilation within the anterior or posterior circulation. 4. No areas of hemodynamically significant stenosis, vascular occlusion or aneurysmal dilation within the neck vasculature. Any quantitative measurements of stenosis were performed using NASCET criteria. Dictated by: Trina Patel M.D. on 04/05/2021 at 15:03 Approved by: Trina Patel M.D. on 04/05/2021 at 15:14 CT scan - head: Radiologist's Impression: [address] [id number] Scan ReportSigned Patient: Chula Grajeda [facility]#: [id number]: 8Acct:[id number]/Sex: 80 / FDate of Service: 04/05/21Loc: EDAccession Number: [id number] Procedure: CT Stroke Ordering Provider: Sherlyn Lopez D.O. PROCEDURE: CT STROKE INDICATIONS: sudden memory loss improved. TECHNIQUE: Noncontrast 4.5 mm thick angled axial sections acquired from the foramen magnum to the vertex, with coronal reformats. For radiation dose reduction, the following was used: automated exposure control, adjustment of mA and/or kV according to patient size. COMPARISON: None. FINDINGS: Image quality: Excellent. CSF spaces: Basal cisterns are patent. No extra-axial fluid collections. The ventricles are symmetric in size and shape. Brain: No intracranial bleeds or masses. There is moderate cerebral volume loss for age, with resultant ventricular and sulcal prominence. There are moderate periventricular and deep white matter chronic small vessel ischemic changes. There is intracranial internal carotid artery atherosclerosis. Skull and face: Calvarium and visualized facial bones appear intact, without suspicious lesions. Sinuses: Visualized sinuses and mastoids are clear. IMPRESSION: 1. No acute intracranial abnormalities. 2. Cerebral volume loss and chronic microvascular ischemic changes. The result was discussed with Dr. Lopez. This study fulfills neurological imaging criteria for inclusion or exclusion of acute stroke therapies based on available published neurological guidelines. Dictated by: Germán Eid M.D. on 04/05/2021 at 13:12 Approved by: Germán Eid M.D. on 04/05/2021 at 13:15 ECG Data Attestation: I personally reviewed and interpreted this ECG as follows: Interpretation: Sinus rhythm nonspecific change. Rate of 90 7p are 176 QRS 88 QTC 429. No acute ST changes. MDM Narrative Medical decision making narrative: This is an 80-year-old female comes in with complaint of expressive aphasia which has since resolved and is not a candidate for tPA. Patient was hypertensive but improving. Head CT CT angio in labs do not show acute cause. Patient is on a baby aspirin daily. Observation was offered. Hospitalist evaluated the patient and patient elects to return home but with alteration and dual platelet therapy. Discharge Plan Departure Patient Disposition: Home Clinical Impression: TIA (transient ischemic attack) Instructions: DI for Transient Ischemic Attack Activity Restrictions/Additional Instructions: Follow-up with your physician this week recheck. Call for an appointment on Thursday morning. You need further follow-up including echo, lipid panel and further evaluation for the cause of our TIA. Continue with aspirin 81mg daily. As discussed you are recommended to be on Plavix 75 mg for minimum of 21 days. Discussed with your physician if you need to continue this after this point. You are given initial loading dose of 300 mg today. Prescription was sent to [facility] Please return for new or worsening symptoms, recurrent difficulty with speech, headaches, facial droop, numbness, tingling or weakness, difficulty with movement of her extremities or ambulation, chest pain or shortness of breath or other new or concerning symptoms. Prescriptions: New clopidogrel [Plavix] 75 mg tablet 75 mg PO DAILY Qty: 21 RF: 0 No Action aspirin 81 MG tablet,delayed release (DR/EC) 81 mg PO QDAY Qty: 30 RF: 0 atorvastatin 40 MG tablet 40 mg PO QDAY Qty: 30 RF: 0 losartan-hydrochlorothiazide 100 MG/25 MG tablet 1 tab PO QDAY Qty: 30 RF: 0 amlodipine 10 MG tablet 10 mg PO QDAY Qty: 30 RF: 0 tramadol 50 mg Tablet 50 mg PO Q6H PRN (Reason: Pain (Scale Score 1-3)) RF: 0 Referrals: Alex Perera MD [Primary Care Provider] -
[2021-04-05 14:47] LABS: Ur Creatinine Normal (Normal); Ur Specific Gravity Normal (Normal); Urine pH Normal (Normal)
[2021-04-05 14:48] LABS: UR Morphine/Opiate cutoff 300 Negative (Negative); Urine Amphetamines Negative (Negative); Urine Barbiturates Negative (Negative); Urine Benzodiazepines Negative (Negative); Urine Cocaine Negative (Negative); Urine MDMA Negative (Negative); Urine Methadone Negative (Negative); Urine Methamphetamines Negative (Negative); Urine Oxycodone Negative (Negative); Urine Phencyclidine Negative (Negative); Urine Tetrahydrocannabinol Negative (Negative); Urine Tricyclic Antidepressant Negative (Negative)
--- NOTE | 2021-04-05 16:59 | P.CONS_ITS ---
History of Present Illness Consult details Date Patient Seen: 04/05/21 Time Patient Seen: 17:00 Chief complaint: trouble recalling things Narrative: This is an 80-year-old female with a past medical history of breast cancer, hypertension, hyperlipidemia, prior bradycardia with pacemaker placement about 10 years ago who presented after episodes of difficulty word finding. The patient was in her usual state of health until she noticed that she had difficulty stating the correct words. According to family at the bedside, the patient had 3 distinct episodes each lasting a couple of minutes, that were about 10 minutes apart. Total symptoms lasted for a little over an hour. Her last symptoms were around 11 30 this afternoon. She denied any facial droop, slurred speech, weakness, numbness, or tingling. She denied headache or vision changes. She denies any recent fevers or chills, chest pains, shortness of breath, palpitations, or lower extremity edema. In the emergency room, the patient was mildly hypertensive and slightly tachycardic, though the patient notes that she typically gets this way with doctor visits and has known white coat hypertension. The remainder of her vital signs were unremarkable. Her laboratory studies were similarly unremarkable. Initial noncontrast head CT and CT angiogram of her head and neck were unremarkable and showed no acute abnormalities. Medicine was asked to evaluate for possible admission for TIA. Patient reports multiple family members with hypertension and hyperlipidemia including her mother and father. Meds Home Medications and Allergies Home Medications Medication Instructions Recorded Confirmed Type aspirin 81 mg tablet,delayed 81 mg PO QDAY #30 tab 04/01/16 01/12/20 History release amlodipine 10 mg tablet 10 mg PO QDAY #30 tab 05/13/17 01/12/20 Rx atorvastatin 40 mg tablet 40 mg PO QDAY #30 tab 05/13/17 01/12/20 Rx losartan 100 1 tab PO QDAY #30 tab 05/13/17 01/12/20 Rx mg-hydrochlorothiazide 25 mg tablet tramadol 50 mg tablet 50 mg PO Q6H PRN 11/29/18 01/12/20 History clopidogrel 75 mg tablet (Plavix) 75 mg PO DAILY #21 tab 04/05/21 Rx Allergies Allergy/AdvReac Type Severity Reaction Status Date / Time letrozole [LETROZOLE] Allergy Unknown FULL BODY Verified 04/05/21 13:16 ACHES Review of Systems Review of Systems Narrative: All other systems reviewed with the patient and are negative unless otherwise stated. Exam Vital Signs (past 8 hours): - 04/05/21 12:47 04/05/21 13:32 04/05/21 13:33 Temperature 97.9 F Pulse Rate 120 H 100 H 101 H Respiratory Rate 20 18 25 H Blood Pressure 183/90 H 169/72 H Pulse Oximetry 99 97 99 04/05/21 14:00 04/05/21 14:27 04/05/21 14:30 Temperature Pulse Rate 99 H 101 H 97 H Respiratory Rate 24 18 15 Blood Pressure 165/75 H 158/74 H 145/66 H Pulse Oximetry 97 96 97 04/05/21 14:49 04/05/21 15:00 04/05/21 15:30 Temperature Pulse Rate 105 H 95 H 101 H Respiratory Rate 24 28 H 24 Blood Pressure 167/72 H 136/63 149/70 H Pulse Oximetry 96 96 96 04/05/21 16:00 04/05/21 16:10 04/05/21 16:11 Temperature Pulse Rate 105 H 111 H 109 H Respiratory Rate 25 H 13 13 Blood Pressure 161/74 H 161/77 H 154/70 H Pulse Oximetry 97 95 97 04/05/21 16:12 04/05/21 16:13 04/05/21 16:14 Temperature Pulse Rate 110 H 108 H 105 H Respiratory Rate 16 21 21 Blood Pressure 151/65 H 148/66 H 140/63 Pulse Oximetry 97 96 97 04/05/21 16:26 Temperature Pulse Rate 100 H Respiratory Rate 18 Blood Pressure Pulse Oximetry Oxygen Delivery Method Room Air Narrative Exam Narrative: GENERAL APPEARANCE: Well developed, well nourished, in no acute distress. SKIN: Inspection of the skin reveals no rashes, ulcerations or petechiae. HEENT: Normocephalic atraumatic, extraocular muscles are intact, oropharynx is clear and mucous membranes are moist, neck is supple without adenopathy NECK: Supple and symmetric. There was no thyroid enlargement, and no tenderness, or masses were felt. CHEST: Normal AP diameter and normal contour without any kyphoscoliosis. LUNGS: Auscultation of the lungs revealed no wheezes, rhonchi, or rales. CARDIOVASCULAR: There was a regular rate and rhythm without any murmurs, gallops, rubs. Peripheral pulses were 2+ and symmetric. ABDOMEN: Soft and nontender with normal bowel sounds. No ascites was noted. MUSCULOSKELETAL: There was no tenderness or effusions noted. Muscle strength and tone were normal. EXTREMITIES: No cyanosis, clubbing or edema. NEUROLOGIC: Alert and oriented x 3. Normal affect. Heel to ro unremarkable. Strength is +5/5 in the Upper Extremities and Lower Extremities Bilaterally. Sensation to touch was normal in all extremities and face. CN2-12 grossly intact bilaterally. Objective ECG Impression: Normal sinus rhythm, no evidence of acute ischemia Imaging CT scan - head: Radiologist's impression: IMPRESSION: 1. No acute intracranial process. 2. Moderate atrophy and chronic microvascular ischemic changes. 3. No areas of hemodynamically significant stenosis, vascular occlusion or aneurysmal dilation within the anterior or posterior circulation. 4. No areas of hemodynamically significant stenosis, vascular occlusion or aneurysmal dilation within the neck vasculature. Any quantitative measurements of stenosis were performed using NASCET criteria. Labs Result Diagrams: 04/05/21 13:00 04/05/21 13:00 Labs: Laboratory Results - last 24 hr 04/05/21 04/05/21 04/05/21 13:00 13:00 13:00 WBC 9.8 RBC 4.90 Hgb 14.7 Hct 43.8 MCV 89.3 MCH 30.0 MCHC 33.6 RDW 12.9 Plt Count 246 Neut % (Auto) 62.2 Lymph % (Auto) 24.6 L Kendall % (Auto) 8.6 Eos % (Auto) 3.5 Baso % (Auto) 1.1 Neut # (Auto) 6100 Lymph # (Auto) 2400 Kendall # (Auto) 800 Eos # (Auto) 300 Baso # (Auto) 100 PT 10.5 INR 1.0 APTT 31 Sodium 137 Potassium 3.8 Chloride 98 Carbon Dioxide 27 BUN 20 H Creatinine 0.99 Estimated GFR 53.7 L BUN/Creatinine Ratio 20.2 Glucose 129 H Calcium 11.3 H Total Creatine Kinase 63 CK-MB (CK-2) TNP CK-MB (CK-2) Rel Index TNP Troponin I < 0.012 U Opiates 300ng/mL cut Ur Oxycodone Screen Urine Methadone Screen Ur Barbiturates Screen U Tricyclic Antidepress Ur Phencyclidine Scrn Ur Amphetamines Screen U Methamphetamines Scrn Ur MDMA Scrn (Ecstasy) U Benzodiazepines Scrn Urine Cocaine Screen U Marijuana (THC) Screen 08/27/21 14:39 WBC RBC Hgb Hct MCV MCH MCHC RDW Plt Count Neut % (Auto) Lymph % (Auto) Kendall % (Auto) Eos % (Auto) Baso % (Auto) Neut # (Auto) Lymph # (Auto) Kendall # (Auto) Eos # (Auto) Baso # (Auto) PT INR APTT Sodium Potassium Chloride Carbon Dioxide BUN Creatinine Estimated GFR BUN/Creatinine Ratio Glucose Calcium Total Creatine Kinase CK-MB (CK-2) CK-MB (CK-2) Rel Index Troponin I U Opiates 300ng/mL cut Negative Ur Oxycodone Screen Negative Urine Methadone Screen Negative Ur Barbiturates Screen Negative U Tricyclic Antidepress Negative Ur Phencyclidine Scrn Negative Ur Amphetamines Screen Negative U Methamphetamines Scrn Negative Ur MDMA Scrn (Ecstasy) Negative U Benzodiazepines Scrn Negative Urine Cocaine Screen Negative U Marijuana (THC) Screen Negative Assessment & Plan Assessment & Plan narrative: This is an 80-year-old female with a past medical history of breast cancer, hypertension, hyperlipidemia, prior bradycardia with pacemaker placement about 10 years ago who presented after episodes of difficulty word finding. Initial noncontrast head CT and CT angiogram of her head and neck were unremarkable and showed no acute abnormalities. Medicine was asked to evaluate for possible admission for TIA. Discussed with patient the risks and benefits of admission. She had not had any return of symptoms in the ER. We discussed that given her pacemaker we are unable to obtain an MRI for definitive diagnosis of stroke, but that TIA and stroke are treated very similarly now and that the MRI would not likely slip box changer at this point. Given her EKG and frequent cardiology follow up without prior diagnosis of afib, embolic source is felt to be less likely. She can follow-up with her primary care provider to more accurately assess her blood pressure given her reported white coat hypertension, and it was recommended that she get a blood pressure cuff at home and review this with her PCP. Can interrogate pacemaker with outpatient cardiology office. The patient already takes a baby aspirin and a high-intensity dose of atorvastatin. Given her ABCD2 score of 5 she would benefit from Plavix administration in addition to aspirin which was already given. Initial dose of Plavix is 300 mg, followed by 75 mg of Plavix for 21 days. We discussed the risk of possible worsening symptoms as a reason for observation admission, however the patient felt comfortable discharging home. Precautions for return symptoms were discussed, and she was advised to call EMS at the 1st sign of any return of symptoms. Diagnoses: 1. TIA 2. HTN, chronic 3. HLD 4. history of bradyarrythmia s/p PPM placement. 5. breast cancer I have utilized all available immediate resources to obtain, update, or review the patient's current medications. Code: discussed but no decision maker or plan specified at this time.
[2021-04-05] MEDS: CLOPIDOGREL 75 MG TABLET 300 MG PO (17:11)
== END 2021-04-05 17:21 | disposition home or self-care (01) ==
PROVIDERS: Emergency Provider Emergency Medicine; Family Provider Internal Medicine; PCP Internal Medicine
DX: G45.9 Transient cerebral ischemic attack, unspecified (principal); R47.01 Aphasia; R41.3 Other amnesia; Z79.82 Long term (current) use of aspirin
CPT/HCPCS: 36415; 70450; 70496; 70498; 80048; 80305; 81003; 82550; 82962; 84484; 85025; 85610; 85730; 93005; 93010; 96360; 96361; 99285; Q9967

== ENCOUNTER → 2021-09-03 08:10 | Outpatient (CLI) | payer MEDICARE, OTHER, SELFPAY ==
[2021-09-03 09:20] LABS: Add Manual Diff / Slide Review NO; Basophils Absolute Auto 0 /uL (0-100); Basophils Percent Auto 0.8 % (0-2); Eosinophils Absolute Auto 300 /uL (0-450); Eosinophils Percent Auto 5.4 % (2-4); Hematocrit 39.2 % (36-46); Hemoglobin 13.6 g/dL (12.0-16.0); Lymphocytes Absolute Auto 1500 /uL (1100-4500); Lymphocytes Percent Auto 23.9 % (25-40); Mean Corpuscular HGB Conc 34.6 % (30-36); Mean Corpuscular Hemoglobin 30.3 PG (26-34); Mean Corpuscular Volume 87.5 fL (80-100); Monocytes Absolute Auto 700 /uL (0-900); Monocytes Percent Auto 10.7 % (3-14); Neutrophils Absolute Auto 3700 /uL (1500-7000); Neutrophils Percent Auto 59.2 % (50-75); Platelet Count 210 X10^3/uL (150-400); Red Blood Cell Count 4.48 X10^6/uL (4.0-5.2); Red Cell Distribution Width 12.9 % (11.6-14.8); White Blood Cell Count 6.2 X10^3/uL (4.5-11.0)
[2021-09-03 11:28] LABS: Alanine Aminotransferase 26 IU/L (<35); Albumin 4.8 g/dL (3.5-5.0); Albumin Globulin Ratio 1.5 (1.0-2.8); Alkaline Phosphatase 65 U/L (38-126); Aspartate Aminotransferase 36 IU/L (14-36); BUN Creatinine Ratio 29.9 (6-22); Bilirubin Total 0.6 mg/dL (0.2-1.3); Blood Urea Nitrogen 29 mg/dL (7-17); Calcium 10.4 mg/dL (8.4-10.2); Carbon Dioxide 31 mmol/L (22-32); Chloride 98 mmol/L (98-107); Cholesterol 222 mg/dL (140-199); Estimated Glomerular Filt Rate 54.8 mL/min (>60); Globulin 3.1 g/dL (1.7-4.1); Glucose 109 mg/dL (80-110); HDL Cholesterol 87 mg/dL (40-60); HEMOLYSIS < 15 (0-50); LDL Cholesterol Calculated 105 mg/dL (<100); Potassium 4.2 mmol/L (3.4-5.1); Sodium 136 mmol/L (137-145); Total Protein 7.9 g/dL (6.3-8.2); Triglycerides 148 mg/dL (35-150)
[2021-09-03 11:57] LABS: TSH w/ Reflex to FT4 1.21 uIU/mL (0.47-4.68)
== END ==
PROVIDERS: Family Provider Internal Medicine; PCP Internal Medicine; Referring Provider Internal Medicine; Visit Provider Internal Medicine
DX: E78.5 Hyperlipidemia, unspecified (principal); I10 Essential (primary) hypertension
CPT/HCPCS: 36415; 80053; 80061; 84443; 85025

== ENCOUNTER → 2022-01-15 10:59 | Outpatient (CLI) | payer MEDICARE, OTHER, SELFPAY ==
--- NOTE | 2022-01-15 11:00 | DI.MG.S_ITS ---
BILATERAL DIGITAL SCREENING MAMMOGRAM 3D/2D WITH CAD: 01/15/2022 CLINICAL: Routine screening. Comparison is made to exams dated: 01/14/2021 mammogram, 01/13/2020 mammogram, 12/09/2018 mammogram, 10/15/2017 mammogram, and 07/18/2016 mammogram - [facility]. The tissue of both breasts is extremely dense, which lowers the sensitivity of mammography. Current study was also evaluated with a Computer Aided Detection (CAD) system. There are benign calcifications in the right breast. No significant masses, calcifications, or other findings are seen in either breast. There has been no significant interval change. IMPRESSION: BENIGN There is no mammographic evidence of malignancy. A 1 year screening mammogram is recommended. This exam was interpreted at Station ID: [id number]. NOTE: For mammograms, a report in lay terms will be sent to the patient. Approximately 15% of breast malignancies will not be visualized mammographically. In the management of a palpable breast mass, a negative mammogram must not discourage biopsy of a clinically suspicious lesion. Electronically Signed By: Suraj [email or web address]:01/16/2022 14:11:53 letter sent: Normal Exam ACR BI-RADS Category 2: Benign Finding(s) 3342F
== END ==
PROVIDERS: Family Provider Internal Medicine; PCP Internal Medicine; Referring Provider Internal Medicine Hematology & Oncology; Visit Provider Internal Medicine Hematology & Oncology
DX: Z12.31 Encounter for screening mammogram for malignant neoplasm of breast (principal)
CPT/HCPCS: 77063; 77067

== ENCOUNTER → 2022-05-19 09:22 | Outpatient (CLI) | payer MEDICARE, OTHER, SELFPAY ==
[2022-05-19 14:15] LABS: Alanine Aminotransferase 21 IU/L (<35); Albumin 4.4 g/dL (3.5-5.0); Albumin Globulin Ratio 1.4 (1.0-2.8); Alkaline Phosphatase 62 U/L (38-126); Aspartate Aminotransferase 28 IU/L (14-36); BUN Creatinine Ratio 17.3 (6-22); Bilirubin Total 0.5 mg/dL (0.2-1.3); Blood Urea Nitrogen 18 mg/dL (7-17); Carbon Dioxide 28 mmol/L (22-32); Chloride 97 mmol/L (98-107); Estimated Glomerular Filt Rate 53 mL/min (>60); Globulin 3.1 g/dL (1.7-4.1); Glucose 91 mg/dL (80-110); HEMOLYSIS < 15 (0-50); Potassium 4.5 mmol/L (3.4-5.1); Sodium 135 mmol/L (137-145); Total Protein 7.5 g/dL (6.3-8.2)
== END ==
PROVIDERS: Family Provider Internal Medicine; PCP Internal Medicine; Referring Provider Internal Medicine; Visit Provider Internal Medicine
DX: D35.1 Benign neoplasm of parathyroid gland (principal); I10 Essential (primary) hypertension; E83.52 Hypercalcemia
CPT/HCPCS: 36415; 80053

== ENCOUNTER → 2023-07-04 08:53 | Outpatient (CLI) | payer MEDICARE, OTHER, SELFPAY ==
[2023-07-04 09:47] LABS: Add Manual Diff / Slide Review NO; Basophils Absolute Auto 100 /uL (0-100); Basophils Percent Auto 0.7 % (0-2); Eosinophils Absolute Auto 500 /uL (0-450); Eosinophils Percent Auto 7.1 % (2-4); Hemoglobin 13.3 g/dL (12.0-16.0); Lymphocytes Absolute Auto 1600 /uL (1100-4500); Lymphocytes Percent Auto 20.7 % (25-40); Mean Corpuscular HGB Conc 34.2 % (30-36); Mean Corpuscular Volume 87.8 fL (80-100); Monocytes Absolute Auto 700 /uL (0-900); Monocytes Percent Auto 9.6 % (3-14); Neutrophils Absolute Auto 4700 /uL (1500-7000); Neutrophils Percent Auto 61.9 % (50-75); Platelet Count 236 X10^3/uL (150-400); Red Blood Cell Count 4.44 X10^6/uL (4.0-5.2); Red Cell Distribution Width 12.9 % (11.6-14.8); White Blood Cell Count 7.6 X10^3/uL (4.5-11.0)
[2023-07-04 10:04] LABS: Alanine Aminotransferase 25 IU/L (<35); Albumin 4.3 g/dL (3.5-5.0); Albumin Globulin Ratio 1.4 (1.0-2.8); Alkaline Phosphatase 74 U/L (38-126); Aspartate Aminotransferase 32 IU/L (14-36); Bilirubin Total 0.6 mg/dL (0.2-1.3); Blood Urea Nitrogen 21 mg/dL (7-17); Calcium 10.6 mg/dL (8.4-10.2); Carbon Dioxide 29 mmol/L (22-32); Chloride 98 mmol/L (98-107); Cholesterol 199 mg/dL (140-199); Estimated Glomerular Filt Rate > 60 mL/min (>60); Glucose 101 mg/dL (80-110); HDL Cholesterol 64 mg/dL (40-60); HEMOLYSIS < 15 (0-50); LDL Cholesterol Calculated 115 mg/dL (<100); Potassium 4.4 mmol/L (3.4-5.1); Sodium 137 mmol/L (137-145); Total Protein 7.3 g/dL (6.3-8.2); Triglycerides 100 mg/dL (35-150)
== END ==
PROVIDERS: Family Provider Internal Medicine; PCP Internal Medicine; Referring Provider Internal Medicine; Visit Provider Internal Medicine
DX: I10 Essential (primary) hypertension (principal); E78.5 Hyperlipidemia, unspecified; D35.1 Benign neoplasm of parathyroid gland; I48.0 Paroxysmal atrial fibrillation
CPT/HCPCS: 36415; 80053; 80061; 85025

== ENCOUNTER → 2023-11-09 06:43 | Outpatient (CLI) | payer MEDICARE, OTHER, SELFPAY ==
--- NOTE | 2023-11-09 06:45 | DI.US.S_ITS ---
PROCEDURE: US ABDOMEN LIMITED INDICATIONS: RIGHT UPPER QUADRANT PAIN TECHNIQUE: Real-time scanning was performed of the abdominal and retroperitoneal organs, with image documentation. COMPARISON: [facility], CT, CHEST/ABD/PEL WITH CONTRAST, 03/20/2017, 10:07. FINDINGS: Liver: Liver is normal in size and homogeneous in echotexture. Gallbladder: No stones or sludge. Normal wall thickness measuring 1 mm. No pericholecystic fluid. Biliary ducts: Intrahepatic bile ducts are non-dilated. Extrahepatic bile duct caliber measures 6.5 mm. Normal is 6-7 mm or less in diameter, or 10 mm or less post-cholecystectomy. Pancreas: Visualized portions of the pancreas are sonographically normal. Kidney: Not imaged. IMPRESSION: Normal right upper quadrant ultrasound. The kidney was not imaged. Dictated by: Laure Carter M.D. on 11/09/2023 at 8:14 Approved by: Laure Carter M.D. on 11/09/2023 at 8:17
== END ==
PROVIDERS: Family Provider Internal Medicine; PCP Internal Medicine; Referring Provider Internal Medicine; Visit Provider Internal Medicine
DX: R10.11 Right upper quadrant pain (principal)
CPT/HCPCS: 76705

== ENCOUNTER → 2024-01-07 07:47 | Outpatient (CLI) | payer MEDICARE, OTHER, SELFPAY ==
--- NOTE | 2024-01-07 07:48 | DI.MG.S_ITS ---
BILATERAL DIGITAL SCREENING MAMMOGRAM 3D/2D WITH CAD POST LUMPECTOMY: 01/07/2024 CLINICAL: Routine screening. Personal history of right breast cancer. Comparison is made to exams dated: 01/15/2022 mammogram, 01/14/2021 mammogram, 11/29/2020 mammogram, and 01/13/2020 mammogram - [facility]. Both breasts are extremely dense, which lowers the sensitivity of mammography (category d />75% glandular tissue). Current study was also evaluated with a Computer Aided Detection (CAD) system. There is a benign area of fat necrosis in the right breast. There also are benign post operative findings in the right breast. No significant masses, calcifications, or other findings are seen in either breast. There has been no significant interval change. IMPRESSION: BENIGN There is no mammographic evidence of malignancy. A 1 year screening mammogram is recommended. This exam was interpreted at Station ID: [id number]. NOTE: For mammograms, a report in lay terms will be sent to the patient. Approximately 15% of breast malignancies will not be visualized mammographically. In the management of a palpable breast mass, a negative mammogram must not discourage biopsy of a clinically suspicious lesion. Electronically Signed By: Aminta [email or web address]/[email or web address]:01/07/2024 09:46:24 copy to: Julio Ohara letter sent: Normal Exam ACR BI-RADS Category 2: Benign Finding(s) 3342F
== END ==
LOC: MAMMO 07:48
PROVIDERS: Family Provider Internal Medicine; PCP Internal Medicine; Referring Provider Internal Medicine Hematology & Oncology; Visit Provider Internal Medicine Hematology & Oncology
DX: Z12.31 Encounter for screening mammogram for malignant neoplasm of breast (principal); C50.911 Malignant neoplasm of unspecified site of right female breast; R92.343 Mammographic extreme density, bilateral breasts
CPT/HCPCS: 77063; 77067

== ENCOUNTER → 2024-09-05 09:45 | Outpatient (CLI) | payer MEDICARE, OTHER, SELFPAY ==
[2024-09-05 10:13] LABS: Appearance Urine UA SL CLOUDY; Bilirubin Urine UA NEGATIVE (NEGATIVE); Color Urine UA YELLOW; Glucose Urine UA NEGATIVE (Negative); Ketones Urine UA NEGATIVE (NEGATIVE); Leukocyte Esterase Urine UA 3+ (NEGATIVE); Nitrite Urine UA NEGATIVE (Negative); Occult Blood Urine UA NEGATIVE (Negative); Protein Urine UA NEGATIVE (Negative); Urobilinogen Urine UA 0.2 E.U./dL (0.2)
[2024-09-05 10:21] LABS: Bacteria Urine Many (>30); Culture Indicated Urine Specimen Cultured; RBC Urine None Seen (0-5/HPF); Squamous Epithelial Cell Urine None Seen (0-5/HPF); Urine Volume 10mL (spun); WBC Urine 30-100/HPF (0-5/HPF)
== END ==
PROVIDERS: Family Provider Internal Medicine; PCP Internal Medicine; Referring Provider Internal Medicine; Visit Provider Internal Medicine
DX: R30.0 Dysuria (principal)
CPT/HCPCS: 81001; 87077; 87086; 87186

== ENCOUNTER → 2025-03-17 08:40 | Outpatient (CLI) | payer MEDICARE, OTHER, SELFPAY ==
[2025-03-17 09:15] LABS: Cholesterol 189 mg/dL (140-199); HDL Cholesterol 64 mg/dL (40-60); Triglycerides 158 mg/dL (35-150)
== END ==
PROVIDERS: Family Provider Internal Medicine; PCP Internal Medicine; Referring Provider Internal Medicine; Visit Provider Internal Medicine
DX: E78.5 Hyperlipidemia, unspecified (principal)
CPT/HCPCS: 36415; 80061

== ENCOUNTER → 2025-05-24 07:58 | Outpatient (CLI) | payer MEDICARE, OTHER, SELFPAY ==
--- NOTE | 2025-05-24 08:01 | DI.MG.S_ITS ---
MM screening mammo BI: 05/24/2025. BI-RADS: 2 CLINICAL: 85-year old female for bilateral screening mammogram. No Tyrer-Cuzick risk score calculation due to the patient's personal history of breast cancer. Patient reports a history of right breast carcinoma diagnosed at age 76. Status-post right lumpectomy with radiation therapy and hormonal therapy. No first-degree family history of breast cancer. The patient had a prior right breast biopsy. PRIOR EXAMS 01/07/2024, 07/11/2022, 01/15/2022, 01/14/2021. MAMMOGRAPHY TECHNIQUE: 2D and 3D (tomosynthesis) digital mammographic views obtained, with additional images as needed for full coverage. Current study was also evaluated with a Computer Aided Detection (CAD) system. DENSITY D. The breasts are extremely dense, which lowers the sensitivity of mammography. MAMMOGRAPHY FINDINGS Right: Benign-appearing post-surgical changes noted on the right. There are no suspicious masses, calcifications, or other findings in the breast. Left An implanted medical imaging tech obscures a portion of the breast/axilla. No suspicious mass, asymmetry, microcalcification, or other abnormality seen. IMPRESSION: Right * No evidence of malignancy with benign findings. Left * No evidence of malignancy. RECOMMENDATIONS Bilateral * Annual screening mammography. OVERALL ASSESSMENT CATEGORY BI-RADS-2: Benign. The [employer] recommends annual screening mammography beginning at age 40 for women with average risk of breast cancer. ELECTRONICALLY SIGNED: Lidia Guzmán M.D. on 05/24/2025 at 10:30:37 PM PT Interpreting Station ID: [id number]
== END ==
LOC: MAMMO 07:59
PROVIDERS: Family Provider Internal Medicine; PCP Internal Medicine; Referring Provider Internal Medicine; Visit Provider Internal Medicine
DX: Z12.31 Encounter for screening mammogram for malignant neoplasm of breast (principal); Z85.3 Personal history of malignant neoplasm of breast; Z98.890 Other specified postprocedural states
CPT/HCPCS: 77063; 77067